=== PATIENT | male | born 1970 | race Caucasian/White ===

== ENCOUNTER 2023-03-24 15:50 | Outpatient (CLI) | payer OTHER, SELFPAY ==
--- NOTE | 2023-03-24 16:00 | CRLHL7_ITS ---
For Patients: As a result of the Century Cures Act, medical imaging exams and procedure reports are released immediately into your electronic medical record. You may view this report before your referring provider. If you have questions, please contact your health care provider. Indication: chronic sinusitis Technique: CT of the paranasal sinuses without contrast. Coronal and sagittal reformatted images. Bone and soft tissue algorithms. Comparison: None. Findings: Frontal sinuses: The frontal sinuses and frontal recesses are clear. Ethmoid air cells: The ethmoid air cells are clear. Symmetric depths of the olfactory fossa. The anterior ethmoidal arteries course through pneumatized air cells Sphenoid sinuses: The sphenoid sinuses and ostia are clear. No optic canal or carotid canal dehiscence. Maxillary sinuses: Mild mucosal thickening along the pyle of the left maxillary sinus. The right maxillary sinus is clear. The osteomeatal units are clear. Nasal cavity: Sinusoidal deviation of the nasal septum. No ann bullosa. Paradoxical curvature of the middle turbinates. Skullbase, maxilla, TMJ: No lytic or blastic osseous lesions. No periapical tooth lucencies. Mastoid air cells are clear. Orbital contents: Unremarkable Imaged intracranial contents: Unremarkable Imaged soft tissues structures: Unremarkable IMPRESSION: 1. Mild mucosal thickening in the left maxillary sinus. 2. The paranasal sinuses are otherwise clear. 3. Sinusoidal deviation of the nasal septum. Please note that all CT scans at this facility use dose modulation, iterative reconstruction, and/or weight-based dosing when appropriate to reduce radiation dose to as low as reasonably achievable. Dictated by Jim Faustin MD @ 03/25/2023 2:55:37 PM (Electronically Signed)
== END 2023-03-24 15:51 | disposition home or self-care (01) ==
LOC: CT 15:51
PROVIDERS: PCP Nurse Practitioner Family; Visit Provider Otolaryngology
DX: J32.9 Chronic sinusitis, unspecified (principal); J32.0 Chronic maxillary sinusitis; J34.2 Deviated nasal septum
CPT/HCPCS: 70486